=== PATIENT | female | born 1980 | race African-American/Black ===

== ENCOUNTER 2021-12-30 20:58 | Emergency (ER) | payer OTHER ==
[2021-12-30 21:05] VITALS: BP 124/86; PULSE 86; TEMP 98; BMI 21.0
== END 2021-12-31 02:04 | disposition home or self-care (01) ==
LOC: JER 20:58
DX: H61.23 Impacted cerumen, bilateral (principal)
CPT/HCPCS: 99283-25

== ENCOUNTER 2023-01-01 19:29 | Emergency (ER) | payer OTHER ==
[2023-01-01 19:40] VITALS: BP 129/79; PULSE 77; RESP 18; TEMP 98.8; BMI 23.9
[2023-01-01 21:42] LABS: EPI CELLS 19 /uL (0-25.1); HCG,QUALITATIVE URINE Negative; HYALINE CASTS 1 /uL (0-3.1); PH,URINE 7.5 (5.0-8.0); URINE APPEARANCE CLEAR; URINE BACTERIA 246 /uL (0-1359); URINE BILIRUBIN NEGATIVE (NEGATIVE); URINE COLOR YELLOW; URINE GLUCOSE (UA) NEGATIVE (NEGATIVE); URINE KETONE NEGATIVE (NEGATIVE); URINE LEUK ESTERASE 2+ (NEGATIVE); URINE NITRITE NEGATIVE (NEGATIVE); URINE PROTEIN TRACE (NEGATIVE); URINE RBC 56 /uL (0-23.9); URINE UROBILINOGEN 0.2 mg/dL (0.2-1.0); URINE WBC 57 /uL (0-25.8)
== END 2023-01-01 22:27 | disposition home or self-care (01) ==
LOC: JERFT 19:29 → JER 19:29 → JERFT 22:27
DX: N30.91 Cystitis, unspecified with hematuria (principal)
CPT/HCPCS: 81003; 84703; 87086; 99283-25

== ENCOUNTER 2023-01-03 21:30 | Emergency (ER) | payer OTHER ==
[2023-01-03 21:40] VITALS: BP 102/70; PULSE 77; RESP 18; TEMP 98.2; BMI 23.9
[2023-01-03] MEDS ORDERED: FAMOTIDINE 20 MG/50 ML IVPB 20 MG/50 ML MG IVPB ONE ×2 (23:19→23:34)
[2023-01-03] MEDS ORDERED: SODIUM CHLORIDE 0.9% 500 ML INFUS.BAG IV ONE (23:19)
[2023-01-03] MEDS ORDERED: ACETAMINOPHEN 1000 MG/100 ML BAG IVPB ONE (23:19)
[2023-01-03] MEDS ORDERED: ACETAMINOPHEN INJECTION 100 ML IVPB ONE (23:34)
[2023-01-03] MEDS ORDERED: SUCRALFATE 1 GM TABLET (FP) PO ONE (23:44)
[2023-01-04] MEDS ORDERED: SUCRALFATE 1 GM TABLET (FP) ONE (00:05)
[2023-01-04 00:38] LABS: BASO % 0.8 % (0-2.0); EOS % 3.1 % (0-4.5); HEMATOCRIT 35.6 % (32.4-45.2); HEMOGLOBIN 11.5 GM/dL (10.7-15.3); LYMPH % 33.7 % (8-40); MCH 26.4 pg (25.7-33.7); MCHC 32.4 g/dl (32.0-36.0); MEAN CELL VOLUME 81.6 fl (80-96); MEAN PLT VOLUME 7.4 fl (7.5-11.1); MONO % 12.7 % (3.8-10.2); NEUT % 49.7 % (42.8-82.8); PLATELET COUNT 363 10^3/uL (134-434); RBC 4.37 M/mm3 (3.60-5.2); RDW 16.1 % (11.6-15.6); WHITE BLOOD COUNT 9.2 K/mm3 (4.0-10.0)
[2023-01-04 00:58] LABS: CALCIUM 9.7 mg/dL (8.5-10.1)
[2023-01-04 00:59] LABS: BLOOD UREA NITROGEN 8.8 mg/dL (7-18); MAGNESIUM 2.2 mg/dL (1.8-2.4)
[2023-01-04 01:02] LABS: CREATININE 0.7 mg/dL (0.55-1.3)
[2023-01-04 01:03] LABS: TOT PROT 8.4 g/dl (6.4-8.2)
[2023-01-04 01:04] LABS: BILIRUBIN,TOTAL 0.2 mg/dL (0.2-1)
== END 2023-01-04 03:38 | disposition home or self-care (01) ==
LOC: JER 21:30
PROC: 3E033GC Introduction of Other Therapeutic Substance into Peripheral Vein, Percutaneous Approach (ICD-10-PCS; principal; 2023-01-03)
PROC: 3E033NZ Introduction of Analgesics, Hypnotics, Sedatives into Peripheral Vein, Percutaneous Approach (ICD-10-PCS; 2023-01-03)
DX: K59.00 Constipation, unspecified (principal); R10.13 Epigastric pain; R14.0 Abdominal distension (gaseous)
CPT/HCPCS: 36415; 74177-TC; 76705-TC; 80053; 83690; 83735; 84703; 85025; 99285-25; Q9967

== ENCOUNTER 2023-02-09 20:25 | Emergency (ER) | payer OTHER ==
[2023-02-09 20:35] VITALS: BP 117/86; PULSE 70; RESP 18; TEMP 97.8; BMI 23.3
[2023-02-09] MEDS ORDERED: PSEUDOEPHEDRINE HCL 30 MG TABLET PO ONE (21:12)
[2023-02-09] MEDS ORDERED: PSEUDOEPHEDRINE HCL 60 MG TABLET ONE (21:17)
== END 2023-02-09 22:26 | disposition home or self-care (01) ==
LOC: JERFT 20:25
DX: R09.81 Nasal congestion (principal); R05.9 Cough, unspecified; J34.9 Unspecified disorder of nose and nasal sinuses; Z20.822 Contact with and (suspected) exposure to COVID-19
CPT/HCPCS: 0241U-QW; 99283-25

== ENCOUNTER 2023-02-20 23:40 | Emergency (ER) | payer OTHER ==
[2023-02-20 23:51] VITALS: BP 140/63; PULSE 92; RESP 20; TEMP 98.9; BMI 23.3
== END 2023-02-21 05:29 | disposition left against medical advice (07) ==
LOC: JER 23:40
DX: R07.2 Precordial pain (principal)
CPT/HCPCS: 93005; 93010; 99283-25